=== PATIENT | male | born 1955 | race Caucasian/White ===

== ENCOUNTER 2017-04-21 22:01 | Observation (INO) | payer OTHER ==
[2017-04-21] MEDS ORDERED: SODIUM CHLORIDE 0.9% 1,000 ML IV STA (22:08)
--- NOTE | 2017-04-21 22:15 | ED ---
Neuro HPI - General Stated Complaint: Numbness in left arm Time Seen by Provider: 04/21/17 22:01 Source: patient, EMS, RN notes reviewed Mode of arrival: EMS - History of Present Illness Is the patient presenting with stroke symptoms?: No Initial Comments: This is a 62-year-old male with a history of patent foramen ovale muscles a smoker and also admits to drinking 5 beers today who states he was walking in his home when he developed left-sided upper and lower extremity heaviness and numbness lasted about 5 minutes. He has any headache blurry vision nausea vomiting fevers chills sweats or other symptoms he's never had symptoms like this before. He does state that he had no further symptoms since resolution. No family history of strokes or he is aware of. - Related Data Home Medications: Home Medications Medication Instructions Recorded Confirmed Tamsulosin HCl [Flomax] 0.4 mg PO HS 04/21/17 04/21/17 Allergies/Adverse Reactions: Allergies Allergy/AdvReac Type Severity Reaction Status Date / Time No Known Allergies Allergy Verified 04/21/17 22:27 Review of Systems ROS Statement: Those systems with pertinent positive or pertinent negative responses have been documented in the HPI. ROS Other: All systems not noted in ROS Statement are negative. General Exam - General Exam Comments Initial Comments: This is a well-developed well-nourished awake alert oriented 3 male he does have the smell of alcohol conjoiners on his breath General appearance: alert, in no apparent distress Head exam: Present: atraumatic, normocephalic, normal inspection Eye exam: Present: normal appearance, PERRL, EOMI. Absent: scleral icterus, conjunctival injection, periorbital swelling ENT exam: Present: normal exam, mucous membranes moist Neck exam: Present: normal inspection. Absent: tenderness, meningismus, lymphadenopathy Respiratory exam: Present: normal lung sounds bilaterally. Absent: respiratory distress, wheezes, rales, rhonchi, stridor Cardiovascular Exam: Present: regular rate, normal rhythm, normal heart sounds. Absent: systolic murmur, diastolic murmur, rubs, gallop, clicks GI/Abdominal exam: Present: soft, normal bowel sounds. Absent: distended, tenderness, guarding, rebound, rigid Extremities exam: Present: normal inspection, full ROM, normal capillary refill. Absent: tenderness, pedal edema, joint swelling, calf tenderness Back exam: Present: normal inspection Neurological exam: Present: alert, oriented X3, CN II-XII intact Psychiatric exam: Present: normal affect, normal mood Skin exam: Present: warm, dry, intact, normal color. Absent: rash Stroke MDM - Lab Data Result diagrams: 04/21/17 22:15 04/21/17 22:15 Lab Results 04/21/17 04/21/17 04/21/17 Range/Units 22:15 22:15 22:15 WBC 8.7 (3.8-10.6) k/uL RBC 4.77 (4.30-5.90) m/uL Hgb 15.1 (13.0-17.5) gm/dL Hct 45.3 (39.0-53.0) % MCV 95.0 (80.0-100.0) fL MCH 31.7 (25.0-35.0) pg MCHC 33.3 (31.0-37.0) g/dL RDW 13.3 (11.5-15.5) % Plt Count 218 (150-450) k/uL Neutrophils % 61 % Lymphocytes % 24 % Monocytes % 7 % Eosinophils % 4 % Basophils % 1 % Neutrophils # 5.3 (1.3-7.7) k/uL Lymphocytes # 2.1 (1.0-4.8) k/uL Monocytes # 0.6 (0-1.0) k/uL Eosinophils # 0.4 (0-0.7) k/uL Basophils # 0.1 (0-0.2) k/uL PT (9.0-12.0) sec INR (<1.2) APTT (22.0-30.0) sec Sodium 135 L (137-145) mmol/L Potassium 4.1 (3.5-5.1) mmol/L Chloride 98 (98-107) mmol/L Carbon Dioxide 23 (22-30) mmol/L Anion Gap 14 mmol/L BUN 17 (9-20) mg/dL Creatinine 1.00 (0.66-1.25) mg/dL Est GFR (MDRD) Af Amer >60 (>60 ml/min/1.73 sqM) Est GFR (MDRD) Non-Af >60 (>60 ml/min/1.73 sqM) Glucose 97 (74-99) mg/dL POC Glucose (mg/dL) (75-99) mg/dL POC Glu Specialist Employee Labor Relations ID Calcium 9.0 (8.4-10.2) mg/dL Magnesium 1.8 (1.6-2.3) mg/dL Total Bilirubin 0.5 (0.2-1.3) mg/dL AST 24 (17-59) U/L ALT 32 (21-72) U/L Alkaline Phosphatase 73 (38-126) U/L Total Creatine Kinase 166 (55-170) U/L CK-MB (CK-2) 3.7 H* (0.0-2.4) ng/mL CK-MB (CK-2) Rel Index 2.2 Troponin I 0.033 (0.000-0.034) ng/mL Total Protein 7.6 (6.3-8.2) g/dL Albumin 4.4 (3.5-5.0) g/dL Serum Alcohol 65 mg/dL 04/21/17 04/21/17 Range/Units 22:15 22:23 WBC (3.8-10.6) k/uL RBC (4.30-5.90) m/uL Hgb (13.0-17.5) gm/dL Hct (39.0-53.0) % MCV (80.0-100.0) fL MCH (25.0-35.0) pg MCHC (31.0-37.0) g/dL RDW (11.5-15.5) % Plt Count (150-450) k/uL Neutrophils % % Lymphocytes % % Monocytes % % Eosinophils % % Basophils % % Neutrophils # (1.3-7.7) k/uL Lymphocytes # (1.0-4.8) k/uL Monocytes # (0-1.0) k/uL Eosinophils # (0-0.7) k/uL Basophils # (0-0.2) k/uL PT 11.6 (9.0-12.0) sec INR 1.2 H (<1.2) APTT 25.2 (22.0-30.0) sec Sodium (137-145) mmol/L Potassium (3.5-5.1) mmol/L Chloride (98-107) mmol/L Carbon Dioxide (22-30) mmol/L Anion Gap mmol/L BUN (9-20) mg/dL Creatinine (0.66-1.25) mg/dL Est GFR (MDRD) Af Amer (>60 ml/min/1.73 sqM) Est GFR (MDRD) Non-Af (>60 ml/min/1.73 sqM) Glucose (74-99) mg/dL POC Glucose (mg/dL) 102 H (75-99) mg/dL POC Glu Specialist Employee Labor Relations ID [place] Calcium (8.4-10.2) mg/dL Magnesium (1.6-2.3) mg/dL Total Bilirubin (0.2-1.3) mg/dL AST (17-59) U/L ALT (21-72) U/L Alkaline Phosphatase (38-126) U/L Total Creatine Kinase (55-170) U/L CK-MB (CK-2) (0.0-2.4) ng/mL CK-MB (CK-2) Rel Index Troponin I (0.000-0.034) ng/mL Total Protein (6.3-8.2) g/dL Albumin (3.5-5.0) g/dL Serum Alcohol mg/dL - NIH Stroke Scale 1a. Level of Consciousness: (0) alert 1b. LOC Questions: (0) answers correctly 1c. LOC Commands: (0) performs tasks correctly 2. Best Gaze: (0) normal 3. Visual: (0) no visual loss 4. Facial Palsy: (0) normal symmetrical movement 5a. Motor Arm Left: (0) no drift 5b. Motor Arm Right: (0) no drift 6a. Motor Leg Left: (0) no drift 6b. Motor Leg Right: (0) no drift 7. Limb Ataxia: (0) absent 8. Sensory: (0) normal 9. Best Language: (0) no aphasia 10. Dysarthria: (0) normal 11. Extinction/Inattention: (0) no abnormality - Thrombolytic Inclusion/Exclusion Thrombolytic Contraindications: Rapidly Improving s/s - Medical Decision Making I did discuss findings with patient family patient will be admitted for evaluation TIA he is currently asymptomatic. He does smoke 2 packs of cigarettes per day and does not want nicotine patch at this time. We did a long discussion lasted 3.1 minutes regarding smoking cessation and the risks and benefits thereof. - EKG Data -: EKG Interpreted by Me EKG shows normal: sinus rhythm (Sinus rhythm of 63. We'll 160 QRS 136 QT since QTC of 334/444 red bundle-branch block no acute ST-T wave changes.) Past Medical History Past Medical History: Chest Pain / Angina, COPD Additional Past Medical History / Comment(s): occasional chest discomfort History of Any Multi-Drug Resistant Organisms: None Reported Past Surgical History: Orthopedic Surgery Additional Past Surgical History / Comment(s): ORIF RT THUMB; PINS REMOVED. recent AMARIS Past Anesthesia/Blood Transfusion Reactions: No Reported Reaction Smoking Status: Heavy tobacco smoker Course Vital Signs 04/21/17 04/21/17 22:16 23:52 Temperature 97.6 F Pulse Rate 66 60 Respiratory 18 18 Rate Blood Pressure 170/85 148/70 O2 Sat by Pulse 95 95 Oximetry Disposition Clinical Impression: Transient cerebral ischemia Disposition: ADMITTED IP TO THIS HOSP Condition: Stable Referrals: Rhonda Chappell MD [Primary Care Provider] - 1-2 days Decision Time: 00:00
[2017-04-21 22:25] LABS: Glucose,Whole Blood 102 mg/dL (75-99)
[2017-04-21 22:31] LABS: Basophils # (A) 0.1 k/uL (0-0.2); Basophils % (A) 1 %; CH 32.5; CHCM 34.4; Eosinophils # (A) 0.4 k/uL (0-0.7); Eosinophils % (A) 4 %; HCT 45.3 % (39.0-53.0); HDW 2.21; HGB 15.1 gm/dL (13.0-17.5); Luc # (Auto) 0.28; Luc % (Auto) 3; Lymphocytes # (A) 2.1 k/uL (1.0-4.8); Lymphocytes % (A) 24 %; MCH 31.7 pg (25.0-35.0); MCHC 33.3 g/dL (31.0-37.0); Monocytes # (A) 0.6 k/uL (0-1.0); Monocytes % (A) 7 %; Neutrophils # (A) 5.3 k/uL (1.3-7.7); Neutrophils % (A) 61 %; RBC 4.77 m/uL (4.30-5.90); RDW 13.3 % (11.5-15.5); WBC 8.7 k/uL (3.8-10.6); WBC (Perox) 8.34
[2017-04-21 22:39] LABS: INR 1.2 (<1.2); Partial Thromboplastin Time 25.2 sec (22.0-30.0); Prothrombin Time 11.6 sec (9.0-12.0)
[2017-04-21 22:44] LABS: ALT 32 U/L (21-72); AST 24 U/L (17-59); Alcohol 65 mg/dL; Alkaline Phosphatase 73 U/L (38-126); Anion Gap 14 mmol/L; Blood Urea Nitrogen 17 mg/dL (9-20); Carbon Dioxide 23 mmol/L (22-30); Chloride 98 mmol/L (98-107); Glucose 97 mg/dL (74-99); Magnesium 1.8 mg/dL (1.6-2.3); Non-African American GFR(MDRD) >60 (>60 ml/min/1.73 sqM); Potassium 4.1 mmol/L (3.5-5.1); Sodium 135 mmol/L (137-145); Total Bilirubin 0.5 mg/dL (0.2-1.3); Total Protein 7.6 g/dL (6.3-8.2)
[2017-04-21 23:11] LABS: Troponin I 0.033 ng/mL (0.000-0.034)
[2017-04-21 23:21] LABS: Creatine Kinase MB 3.7 ng/mL (0.0-2.4)
--- NOTE | 2017-04-21 23:54 | CT ---
EXAM: CT Head Without Intravenous Contrast CLINICAL HISTORY: Reason: Neuro Deficits pt. c/o of left sided weakness/ TECHNIQUE: Axial computed tomography images of the head/brain without intravenous contrast. CTDI is 57.40 mGy and DLP is 926.50 mGy-cm. This CT exam was performed using one or more of the following dose reduction techniques: automated exposure control, adjustment of the mA and/or kV according to patient size, and/or use of iterative reconstruction technique. COMPARISON: No relevant prior studies available. FINDINGS: Brain: Mild low density in the subcortical and periventricular white matter. No hemorrhage. No edema. No midline shift or mass effect Ventricles: Unremarkable. No ventriculomegaly. Bones/joints: Unremarkable. No acute fracture. Soft tissues: Unremarkable. Sinuses: Minimal paranasal sinus mucosal thickening. Mastoid air cells: Unremarkable as visualized. No mastoid effusion. IMPRESSION: 1. No evidence of acute intracranial abnormality. 2. Low density in the subcortical periventricular white matter likely reflects chronic small vessel disease.
--- NOTE | 2017-04-21 23:55 | XR ---
EXAM: XR Chest, 2 Views CLINICAL HISTORY: Reason: altered mental status TECHNIQUE: Frontal and lateral views of the chest. Pt. c/o left sided weakness COMPARISON: No relevant prior studies available. FINDINGS: Lungs: Unremarkable. No consolidation. Pleural space: Unremarkable. No pneumothorax. Heart: Unremarkable. No cardiomegaly. Mediastinum: Unremarkable. Bones/joints: Unremarkable. IMPRESSION: No evidence of acute cardiopulmonary disease.
[2017-04-22] MEDS ORDERED: SODIUM CHLORIDE 0.9% 1,000 ML IV SCH (01:00)
[2017-04-22] MEDS ORDERED: ASPIRIN 325 MG TAB PO STA (01:42)
[2017-04-22 03:34] VITALS: TEMP 97.2
[2017-04-22 08:45] VITALS: RESP 17
--- NOTE | 2017-04-22 09:30 | US ---
EXAMINATION TYPE: US carotid duplex BILAT DATE OF EXAM: 04/22/2017 COMPARISON: NONE CLINICAL HISTORY: Stenosis. Left arm and leg numbness last night, none today, no h/o stroke EXAM MEASUREMENTS: RIGHT: Peak Systolic Velocity (PSV) cm/sec ----- Right CCA: 85.0 ----- Right ICA: 86.1 ----- Right ECA: 178.7 ICA/CCA ratio: 1.0 RIGHT: End Diastole cm/sec ----- Right CCA: 9.1 ----- Right ICA: 17.1 ----- Right ECA: 0.0 LEFT: Peak Systolic Velocity (PSV) cm/sec ----- Left CCA: 67.4 ----- Left ICA: 106.9 ----- Left ECA: 134.5 ICA/CCA ratio: 1.6 LEFT: End Diastole cm/sec ----- Left CCA: 9.0 ----- Left ICA: 21.2 ----- Left ECA: 5.3 VERTEBRALS (direction of flow): Right Vertebral: Antegrade Left Vertebral: Antegrade Mild heterogeneous plaque at the left bulb with no significant stenosis seen Grayscale, color and spectral Doppler imaging of the carotid arteries. IMPRESSION: No hemodynamic significant stenosis of the proximal internal carotid arteries bilaterall y by Doppler criteria, an indirect measurement of carotid stenosis
[2017-04-22 13:37] VITALS: BP 181/83; PULSE 56
--- NOTE | 2017-04-22 14:24 | P.HPIM ---
History of Present Illness This is a 62-year-old male with a history of patent foramen ovale and smoker and does drink alcohol on regular basis but never had withdrawls came in with left-sided upper and lower extremity heaviness and numbness lasted about 5 minutes. He denied headache blurry vision nausea vomiting fevers chills sweats or other symptoms he's never had symptoms like this before. He does state that he had no further symptoms since resolution. No family history of strokes or he is aware of. Patient underwent carotid Doppler which did not show any hemodynamically significant atherosclerotic vascular disease and bilateral cavitates. Patient underwent echocardiogram pulmonary report is no patent foraminal ovale. Patient underwent surgical correction in the past for PFO. Patient underwent bubble study. Extensive counseling regarding nicotine abuse was provided and patient will be started on aspirin and simvastatin and will be discharged. Patient has minimal expiratory wheezing probably undiagnosed COPD for which patient was started on albuterol and inhalational steroids as well. Patient will need outpatient pulmonary function testing. Counseling regarding alcohol abuse was provided and I do not believe patient will have significant withdrawals withdrawals warranting his continued hospitalization. Review of Systems REVIEW OF SYSTEMS: CONSTITUTIONAL: No fever, no malaise, no fatigue. HEENT: No recent visual problems or hearing problems. Denied any sore throat. CARDIOVASCULAR: No chest pain, orthopnea, PND, no palpitations, no syncope. PULMONARY: No shortness of breath, no cough, no hemoptysis. GASTROINTESTINAL: No diarrhea, no nausea, no vomiting, no abdominal pain. Normoactive bowel sounds. NEUROLOGICAL: No headaches. HEMATOLOGICAL: Denies any bleeding or petechiae. GENITOURINARY: Denies any burning micturition, frequency, or urgency. MUSCULOSKELETAL/RHEUMATOLOGICAL: Denies any joint pain, swelling, or any muscle pain. ENDOCRINE: Denies any polyuria or polydipsia. The rest of the 14-point review of systems is negative. Past Medical History Past Medical History: Chest Pain / Angina, COPD Additional Past Medical History / Comment(s): occasional chest discomfort, PFO History of Any Multi-Drug Resistant Organisms: None Reported Past Surgical History: Orthopedic Surgery Additional Past Surgical History / Comment(s): ORIF RT THUMB; PINS REMOVED. recent AMARIS Past Anesthesia/Blood Transfusion Reactions: No Reported Reaction Past Psychological History: No Psychological Hx Reported Smoking Status: Heavy tobacco smoker Past Alcohol Use History: Occasional Additional Past Alcohol Use History / Comment(s): SMOKES 2 PPD FOR 40 PLUS YRS; DRINKS 2-3X PER WK, OR EST 8-10 BEERS PER WEEK Past Drug Use History: Marijuana Additional Drug Use History / Comment(s): SMOKES MARIJUANA DAILY - Past Family History Father Family Medical History: No Reported History Medications and Allergies Home Medications Medication Instructions Recorded Confirmed Type Tamsulosin HCl [Flomax] 0.4 mg PO HS 04/21/17 04/21/17 History Allergies Allergy/AdvReac Type Severity Reaction Status Date / Time No Known Allergies Allergy Verified 04/21/17 22:27 Physical Exam Vitals: Vital Signs Temp Pulse Pulse Resp BP BP Pulse Ox 04/22/17 12:00 56 L 17 181/83 92 L 04/22/17 08:00 63 17 156/81 94 L 04/22/17 05:28 49 L 125/61 04/22/17 03:30 97.2 F L 55 L 16 197/81 95 04/22/17 01:55 97.3 F L 59 L 18 155/71 95 04/22/17 00:14 57 L 18 143/69 96 04/21/17 23:52 60 18 148/70 95 04/21/17 22:16 97.6 F 66 18 170/85 95 Intake and Output 04/21/17 04/22/17 04/22/17 22:59 06:59 14:59 Intake Total 400 200 Balance 400 200 Intake: IV 400 Sodium Chloride 0.9% 1, 400 000 ml @ 100 mls/hr IV . Q10H [facility] Rx#:[id number] Oral 200 Other: # Voids 1 0 Weight 77.111 kg 77.6 kg PHYSICAL EXAMINATION: GENERAL: The patient is alert and oriented x3, not in any acute distress. Well developed, well nourished. HEENT: Pupils are round and equally reacting to light. EOMI. No scleral icterus. No conjunctival pallor. Normocephalic, atraumatic. No pharyngeal erythema. No thyromegaly. CARDIOVASCULAR: S1 and S2 present. No murmurs, rubs, or gallops. PULMONARY: Chest is clear to auscultation, no wheezing or crackles. ABDOMEN: Soft, nontender, nondistended, normoactive bowel sounds. No palpable organomegaly. MUSCULOSKELETAL: No joint swelling or deformity. EXTREMITIES: No cyanosis, clubbing, or pedal edema. NEUROLOGICAL: Gross neurological examination did not reveal any focal deficits. SKIN: No rashes. Results CBC & Chem 7: 04/21/17 22:15 04/21/17 22:15 Labs: Abnormal Lab Results - Last 24 Hours (Table) 04/21/17 04/21/17 04/21/17 Range/Units 22:15 22:15 22:15 INR 1.2 H (<1.2) Sodium 135 L (137-145) mmol/L POC Glucose (mg/dL) (75-99) mg/dL CK-MB (CK-2) 3.7 H* (0.0-2.4) ng/mL 04/21/17 Range/Units 22:23 INR (<1.2) Sodium (137-145) mmol/L POC Glucose (mg/dL) 102 H (75-99) mg/dL CK-MB (CK-2) (0.0-2.4) ng/mL Thrombosis Risk Factor Assmnt - Choose All That Apply Any of the Below Risk Factors Present?: Yes Each Factor Represents 1 point: Abnormal pulmonary function (COPD) Each Risk Factor Represents 2 Points: Age 61-74 years Thrombosis Risk Factor Assessment Total Risk Factor Score: 3 Thrombosis Risk Factor Assessment Level: Moderate Risk Assessment and Plan Plan: 1 possible transient ischemic attack: Completely resolved symptoms patient underwent workup for TIA patient will need to be in a statin, patient will need outpatient lipase panel. Patient was started on baby aspirin. And patient will be discharged today. Patient will follow-up with neurology as an outpatient. #2 possible COPD with minimal exacerbation patient was never diagnosed with COPD in the past patient will need outpatient pulmonary function testing. #3 nicotine abuse and alcohol abuse: Counseling was provided. #4 history of patent foraminal ovale: Status post surgical correction. #5 benign prostatic hypertrophy: For which patient will need to continue tamsulosin.
--- NOTE | 2017-04-22 14:24 | P.DS ---
Providers Date of admission: 04/22/17 00:50 Attending physician: Nicky Olivia Consults: 04/22/17 00:51 Consult Physician Routine Consulting Provider: Loretta Draper Consult Reason/Comments: TIA Do you want consulting provider notified?: Yes Primary care physician: Rhonda Chappell Hospital Course: Please refer to HPI Patient Condition at Discharge: Stable Plan - Discharge Summary New Discharge Prescriptions: New Albuterol Inhaler [Ventolin Hfa Inhaler] 1 - 2 puff INHALATION Q6HR PRN #1 inhaler PRN Reason: Shortness Of Breath Or Wheezing Aspirin 81 mg PO DAILY #30 chewable Atorvastatin [Lipitor] 40 mg PO HS #30 tablet Budesonide-Formot 160-4.5 Mcg [Symbicort 160-4.5 Mcg Inhaler] 2 puff INHALATION BID #1 inhaler No Action Tamsulosin HCl [Flomax] 0.4 mg PO HS Discharge Medication List Tamsulosin HCl [Flomax] 0.4 mg PO HS 04/21/17 [History] Albuterol Inhaler [Ventolin Hfa Inhaler] 1 - 2 puff INHALATION Q6HR PRN #1 inhaler 04/22/17 [Rx] Aspirin 81 mg PO DAILY #30 chewable 04/22/17 [Rx] Atorvastatin [Lipitor] 40 mg PO HS #30 tablet 04/22/17 [Rx] Budesonide-Formot 160-4.5 Mcg [Symbicort 160-4.5 Mcg Inhaler] 2 puff INHALATION BID #1 inhaler 04/22/17 [Rx] Follow up Appointment(s)/Referral(s): Loretta Draper MD [STAFF PHYSICIAN] - 1 Week Rhonda Chappell MD [Primary Care Provider] - 3 Days Discharge Disposition: HOME SELF-CARE
--- NOTE | 2017-04-22 17:01 | ECHOF ---
Referral Reason:TIA MEASUREMENTS -------- HEIGHT: 172.7 cm WEIGHT: 77.6 kg BP: 156/81 RVIDd: 3.4 cm (< 3.3) IVSd: 1.3 cm (0.6 - 1.1) LVIDd: 4.0 cm (3.9 - 5.3) LVPWd: 1.3 cm (0.6 - 1.1) IVSs: 1.7 cm LVIDs: 2.8 cm LVPWs: 2.0 cm LA Diam: 3.7 cm (2.7 - 3.8) LAESV Index (A-L): 40.68 ml/m Ao Diam: 3.2 cm (2.0 - 3.7) AV Cusp: 2.5 cm (1.5 - 2.6) MV EXCURSION: 13.341 mm (> 18.000) MV EF SLOPE: 110 mm/s (70 - 150) EPSS: 0.2 cm MV E David: 0.58 m/s MV DecT: 282 ms MV A David: 0.57 m/s MV E/A Ratio: 1.02 RAP: 5.00 mmHg RVSP: 22.55 mmHg FINDINGS -------- Resting bradycardia (HR<60bpm). This was a technically good study. The left ventricular size is normal. There is mild concentric left ventricular hypertrophy. Overall left ventricular systolic function is normal with, an EF between 60 - 65 %. The right ventricle is mildly enlarged. LA is severely dilated >40 ml/m2 The right atrium is normal in size. Contrast study was performed with 1 iv injection of 8 ccs of agitated normal saline at rest. There is an interatrial closure device in place without evidence of shunt. The aortic valve is trileaflet and appears structurally normal. The mitral valve is normal. Mild tricuspid regurgitation present. Right ventricular systolic pressure is normal at < 35 mmHg. Trace/mild (physiologic) pulmonic regurgitation. The aortic root size is normal. Normal inferior vena cava with normal inspiratory collapse consistent with estimated right atrial pressure of 5 mmHg. There is no pericardial effusion. CONCLUSIONS -------- 1. Resting bradycardia (HR<60bpm). 2. There is an interatrial closure device in place without evidence of shunt. 3. The aortic valve is trileaflet and appears structurally normal. 4. The mitral valve is normal. 5. Mild tricuspid regurgitation present. 6. Right ventricular systolic pressure is normal at < 35 mmHg. 7. Trace/mild (physiologic) pulmonic regurgitation. 8. The aortic root size is normal. 9. Normal inferior vena cava with normal inspiratory collapse consistent with estimated right atrial pressure of 5 mmHg. 10. There is no pericardial effusion. 11. This was a technically good study. 12. The left ventricular size is normal. 13. There is mild concentric left ventricular hypertrophy. 14. Overall left ventricular systolic function is normal with, an EF between 60 - 65 %. 15. The right ventricle is mildly enlarged. 16. LA is severely dilated >40 ml/m2 17. The right atrium is normal in size. 18. Contrast study was performed with 1 iv injection of 8 ccs of agitated normal saline at rest. PHOTOLETTERING MACHINE OPERATOR: Chely Virk RDCS
[2017-04-22] MEDS ORDERED: TAMSULOSIN 0.4 MG CAP.ER.24H PO SCH (21:00)
[2017-04-23] MEDS ORDERED: ASPIRIN 325 MG TAB PO SCH (00:52)
== END 2017-04-22 16:40 | disposition home or self-care (01) ==
LOC: EC 22:01 → 6SEL 04-22 00:50
PROVIDERS: ADMIT Internal Medicine; ATTEND Internal Medicine
DX: R20.0 Anesthesia of skin (principal); F17.210 Nicotine dependence, cigarettes, uncomplicated; F10.10 Alcohol abuse, uncomplicated; N40.0 Benign prostatic hyperplasia without lower urinary tract symptoms; Z79.899 Other long term (current) drug therapy
CPT/HCPCS: 99285; 36415; 93306; 97161; 92523; 80053; 82550; 82553; 83735; 84484; 85025; 85610; 85730; 80320; 71020; 93880; 70450; G0378

== ENCOUNTER → 2018-04-29 | Outpatient (CLI) | payer OTHER ==
--- NOTE | 2018-04-29 13:16 | XR ---
EXAM TYPE: LUMBAR SPINE X RAY SERIES COMPARISON: NONE HISTORY: Pain TECHNIQUE: 4 views are submitted. FINDINGS: Alignment is anatomic. The pedicles are intact. The transverse processes are intact. There is grad e 1 spondylolisthesis L4 on L5. Diffuse osteopenia with hypertrophic and degenerative changes at all levels. Multilevel facet arthropathy and moderate to severe degenerative disc disease at all levels with most marked findings at levels L4-5 and L5-S1. IMPRESSION: 1. Multilevel moderate to severe degenerative disc disease with facet arthropathy and grade 1 anterol isthesis L4 on L5.
== END | disposition home or self-care (01) ==
LOC: RADXRYALE 12:57
PROVIDERS: ATTEND Internal Medicine
DX: M43.16 Spondylolisthesis, lumbar region (principal); M51.36 Other intervertebral disc degeneration, lumbar region; M47.816 Spondylosis without myelopathy or radiculopathy, lumbar region; M46.96 Unspecified inflammatory spondylopathy, lumbar region
CPT/HCPCS: 72110

== ENCOUNTER → 2018-12-10 | Outpatient (CLI) | payer OTHER ==
[2018-12-10 17:30] LABS: LDL Cholesterol,Calculated 52.4 mg/dL (0.0-131.0); VLDL Calculation 18.6 mg/dL (5.00-40.00)
== END | disposition home or self-care (01) ==
LOC: LABWHC1 09:07
PROVIDERS: ATTEND Nurse Practitioner Adult Health
DX: E78.5 Hyperlipidemia, unspecified (principal)
CPT/HCPCS: 36415; 80061

== ENCOUNTER 2019-09-21 08:42 | Emergency (ER) | payer OTHER ==
[2019-09-21 08:47] VITALS: BP 180/90; PULSE 78; RESP 18; TEMP 97.6
--- NOTE | 2019-09-21 09:17 | ED ---
Eye Problem HPI - General Chief complaint: Eye Problems Stated complaint: eye swelling Time Seen by Provider: 09/21/19 08:59 Source: patient, old records reviewed Mode of arrival: ambulatory Limitations: no limitations - History of Present Illness Initial comments: 64-year-old male presents emergency Department chief complaint right eye swelling. Patient states he had some swelling yesterday went down after some Benadryl and cool compress. Patient states no sore.eyes eyelid. Patient woke up with increasing swelling, redness. Denies any vision changes, no pain with ocular movements no ocular pain itself states it's in the eyelid. Patient denies any current drainage. Patient had prior cataract surgery by for heme - Related Data Home Medications Medication Instructions Recorded Confirmed Tamsulosin HCl [Flomax] 0.4 mg PO HS 04/21/17 04/21/17 Previous Rx's Medication Instructions Recorded Albuterol Inhaler [Ventolin Hfa 1 - 2 puff INHALATION Q6HR PRN #1 04/22/17 Inhaler] inhaler Aspirin 81 mg PO DAILY #30 chewable 04/22/17 Atorvastatin [Lipitor] 40 mg PO HS #30 tablet 04/22/17 Budesonide-Formot 160-4.5 Mcg 2 puff INHALATION BID #1 inhaler 04/22/17 [Symbicort 160-4.5 Mcg Inhaler] Amoxicillin/Potassium Clav 1 tab PO Q12HR #20 tab 09/21/19 [Augmentin 875-125 Tablet] Tobramycin [Tobrex 0.3% Ophth Soln] 1 drop RIGHT EYE Q4HR #5 ml 09/21/19 Allergies Allergy/AdvReac Type Severity Reaction Status Date / Time No Known Allergies Allergy Verified 09/21/19 08:47 Review of Systems ROS Statement: Those systems with pertinent positive or pertinent negative responses have been documented in the HPI. ROS Other: All systems not noted in ROS Statement are negative. Past Medical History Past Medical History: Chest Pain / Angina, COPD Additional Past Medical History / Comment(s): occasional chest discomfort, PFO History of Any Multi-Drug Resistant Organisms: None Reported Past Surgical History: Orthopedic Surgery Additional Past Surgical History / Comment(s): ORIF RT THUMB; PINS REMOVED. recent AMARIS Past Anesthesia/Blood Transfusion Reactions: No Reported Reaction Past Psychological History: No Psychological Hx Reported Smoking Status: Heavy tobacco smoker Past Alcohol Use History: Occasional Past Drug Use History: Marijuana - Past Family History Father Family Medical History: No Reported History General Exam Limitations: no limitations General appearance: alert, in no apparent distress Head exam: Present: atraumatic, normocephalic, normal inspection Eye exam: Present: PERRL, EOMI, periorbital swelling (Mild right with erythema), periorbital tenderness (Mild right upper eyelid), other (Internal and external sign noted on the right). Absent: normal appearance, scleral icterus, conjunctival injection ENT exam: Present: normal exam, normal oropharynx, mucous membranes moist Neck exam: Present: normal inspection, full ROM. Absent: tenderness, meningismus, lymphadenopathy Respiratory exam: Present: normal lung sounds bilaterally. Absent: respiratory distress, wheezes, rales, rhonchi, stridor Cardiovascular Exam: Present: regular rate, normal rhythm, normal heart sounds. Absent: systolic murmur, diastolic murmur, rubs, gallop, clicks Course Vital Signs 09/21/19 08:44 Temperature 97.6 F Pulse Rate 78 Respiratory 18 Rate Blood Pressure 180/90 O2 Sat by Pulse 97 Oximetry Medical Decision Making - Medical Decision Making Patient found to have a internal/external stye on the right eyelid, there is some surrounding erythema in possible very early cellulitis type changes. Patient lives in [place] by some eyedrops advised to follow-up with Dr. kenny thomas tomorrow return for any worsening symptoms. Disposition Clinical Impression: Hordeolum of right eye Disposition: HOME SELF-CARE Condition: Stable Instructions (If sedation given, give patient instructions): Matthew (ED) Additional Instructions: Please return to the Emergency Department if symptoms worsen or any other concerns. Prescriptions: Amoxicillin/Potassium Clav [Augmentin 875-125 Tablet] 1 tab PO Q12HR #20 tab Tobramycin [Tobrex 0.3% Ophth Soln] 1 drop RIGHT EYE Q4HR #5 ml Is patient prescribed a controlled substance at d/c from ED?: No Referrals: Rhonda Chappell MD [Primary Care Provider] - 1-2 days Deja Nicole MD [STAFF PHYSICIAN] - 1-2 days Time of Disposition: 09:18
== END 2019-09-21 09:50 | disposition home or self-care (01) ==
LOC: EC 08:42
DX: H00.021 Hordeolum internum right upper eyelid (principal); H00.011 Hordeolum externum right upper eyelid; Q21.1 Atrial septal defect; F17.200 Nicotine dependence, unspecified, uncomplicated; Z79.899 Other long term (current) drug therapy; Z98.890 Other specified postprocedural states
CPT/HCPCS: 99283

== ENCOUNTER → 2021-07-14 | Outpatient (CLI) | payer MEDICARE, OTHER ==
--- NOTE | 2021-07-14 11:38 | CTL ---
EXAMINATION TYPE: CT Low Dose Lung DATE OF EXAM ORDERED: 07/14/2021 HISTORY: 66-year-old male Lung cancer screening. F17.[address] DLP: 98.[address] CTDI: 2.90 mGy Automated exposure control for dose reduction was used. SCREENING VISIT: Baseline COMPARISON: Radiograph 04/21/2017 TECHNIQUE: Low dose computed tomography scan was performed through the chest with coronal and sagitta l reconstructions. CT DIAGNOSTIC QUALITY: Satisfactory FINDINGS: Heart normal size without pericardial effusion. PFO closure device is noted. Mild LAD and RCA coronar y calcifications are present. Minimal atherosclerotic arch calcifications. Conventional arch vessel branching anatomy. No thoracic lymphadenopathy by CT size criteria. Mild diffuse bronchial wall thickening. Minimal centrilobular emphysematous change. No consolidation or pleural effusion. 4 mm posterior right upper lobe pulmonary nodule, axial image 38. 5 mm peripheral right lower lobe pulmonary nodule, axial image 2:15. 4 mm left upper lobe pulmonary nodule, axial image 86. Visualized upper abdomen shows no gross abnormality. Bones: Moderate degenerative disc disease mid to lower thoracic spine with anterior endplate spondylo sis. IMPRESSION: 1. LungRADS 2, benign. A few 5 mm and smaller pulmonary nodules on baseline screening. 2. Recommend smoking cessation. There is COPD with very mild emphysema and either a prominent compone nt of chronic bronchitis versus superimposed acute bronchitis. Clinically correlate. CT LUNG RAD AND CT CHEST RECOMMENDATION: Lung-Rad 2 Benign Appearance or Behavior: Continue annual sc reening with LDCT in 12 months. S Modifier (other clinically significant findings): None
== END | disposition home or self-care (01) ==
LOC: RADCTMAIN 08:34
PROVIDERS: ATTEND Internal Medicine
DX: Z12.2 Encounter for screening for malignant neoplasm of respiratory organs (principal); F17.218 Nicotine dependence, cigarettes, with other nicotine-induced disorders; R91.8 Other nonspecific abnormal finding of lung field
CPT/HCPCS: 71271

== ENCOUNTER → 2022-08-02 | Outpatient (CLI) | payer MEDICARE, OTHER ==
[2022-08-02 18:12] LABS: HCT 43.2 % (39.6-50.0); HGB 14.1 g/dL (13.0-17.0); MCH 31.5 pg (27.0-32.0); MCHC 32.6 g/dL (32.0-37.0); MCV 96.4 fL (80.0-97.0); Mean Platelet Volume 10.9 fL (9.5-12.2); NRBC Per 100 WBC 0 /100 WBCS (0.0-0.0); Platelet Count 278 X 10*3/uL (140-440); RBC 4.48 X 10*6/uL (4.40-5.60); RDW 12.2 % (11.5-14.5); WBC 7.86 X 10*3/uL (4.50-10.00)
[2022-08-02 18:34] LABS: Anion Gap 11.3 mmol/L (10.00-18.00); Blood Urea Nitrogen 18.6 mg/dL (9.0-27.0); Carbon Dioxide 28.3 mmol/L (20.0-27.5); Non-African American GFR(CKD) 81.9 (60.0-200.0); Potassium 4.9 mmol/L (3.5-5.5)
== END | disposition home or self-care (01) ==
LOC: LABPAT 11:37
PROVIDERS: ATTEND Internal Medicine Interventional Cardiology
DX: Z01.812 Encounter for preprocedural laboratory examination (principal); R07.9 Chest pain, unspecified
CPT/HCPCS: 80051; 82565; 84520; 85027

== ENCOUNTER 2022-09-25 05:53 | Day surgery (SDC) | payer MEDICARE, OTHER ==
[2022-09-25] MEDS ORDERED: ASPIRIN 325 MG TAB PO STA (06:10)
[2022-09-25] MEDS ORDERED: ALPRAZolam 0.5 MG TAB PO PRN (06:10)
[2022-09-25] MEDS ORDERED: NITROGLYCERIN SL TABS 0.4 MG TAB SUBLINGUAL PRN ×2 (06:10→08:32)
[2022-09-25] MEDS: SODIUM CHLORIDE 0.9% 1,000 ML in EMPTY BAG 1 BAG IV SCH ×2 (06:10→19:41)
[2022-09-25] MEDS ORDERED: ALPRAZolam 0.25 MG TAB PO PRN (06:10)
[2022-09-25] MEDS ORDERED: ATORVASTATIN 80 MG TAB PO STA (06:10)
[2022-09-25 06:32] LABS: Basophils # (A) 0.1 k/uL (0-0.2); Basophils % (A) 1 %; Eosinophils # (A) 0.5 k/uL (0-0.7); Eosinophils % (A) 5 %; HCT 45.2 % (39.0-53.0); HGB 15.5 gm/dL (13.0-17.5); Lymphocytes # (A) 1.6 k/uL (1.0-4.8); Lymphocytes % (A) 18 %; MCH 32.1 pg (25.0-35.0); MCHC 34.4 g/dL (31.0-37.0); MCV 93.3 fL (80.0-100.0); Mean Platelet Volume 7.3; Monocytes # (A) 0.7 k/uL (0-1.0); Monocytes % (A) 8 %; Neutrophils # (A) 5.8 k/uL (1.3-7.7); Neutrophils % (A) 66 %; Platelet Count 290 k/uL (150-450); RBC 4.84 m/uL (4.30-5.90); RDW 11.9 % (11.5-15.5); WBC 8.8 k/uL (3.8-10.6)
[2022-09-25 06:44] LABS: African American GFR (CKD) >90 (>60 ml/min/1.73 sqM); Anion Gap 4 mmol/L; Blood Urea Nitrogen 21 mg/dL (9-20); Calcium 8.7 mg/dL (8.4-10.2); Carbon Dioxide 30 mmol/L (22-30); Chloride 104 mmol/L (98-107); Glucose 104 mg/dL (74-99); Non-African American GFR(CKD) 85 (>60 ml/min/1.73 sqM); Potassium 4.7 mmol/L (3.5-5.1); Sodium 138 mmol/L (137-145)
[2022-09-25] MEDS ORDERED: HEPARIN SODIUM,PORCINE 10,000 UNIT in SODIUM CHLORIDE 0.9% 1,000 ML IRRIGATION PRN (07:00)
[2022-09-25] MEDS ORDERED: HEPARIN SODIUM,PORCINE 2,500 UNIT in SODIUM CHLORIDE 0.9% 250 ML IRRIGATION PRN (07:00)
[2022-09-25] MEDS ORDERED: VERAPAMIL 2.5 MG/ML 2 ML AMP ONE (07:11)
[2022-09-25] MEDS ORDERED: HEPARIN SODIUM 1,000 UN/ML (10ML VL) ONE (07:34)
[2022-09-25] MEDS ORDERED: MIDAZOLAM 2 MG/2 ML VIAL IV ONE (07:44)
[2022-09-25] MEDS ORDERED: LIDOCAINE 1% INJ 10MG/ML (5 ML VIAL-PF) SQ ONE (07:46)
[2022-09-25] MEDS ORDERED: VERAPAMIL SYRINGE (5 MG/10 ML) INTRAARTER ONE (07:48)
[2022-09-25] MEDS ORDERED: CLOPIDOGREL 75 MG TAB ONE (08:03)
[2022-09-25] MEDS ORDERED: CLOPIDOGREL 75 MG TAB PO ONE (08:08)
[2022-09-25] MEDS ORDERED: fentaNYL (PF) 50 MCG/ML 2 ML AMP ONE (08:10)
[2022-09-25] MEDS ORDERED: NITROGLYCERIN 1000MCG/10ML SYRINGE INTRACORON ONE (08:11)
[2022-09-25] MEDS ORDERED: fentaNYL (PF) 50 MCG/1 ML VIAL IVP ONE (08:11)
[2022-09-25] MEDS ORDERED: IOPAMIDOL-370 125ML BTL INJ ONE (08:27)
[2022-09-25] MEDS ORDERED: ZOLPIDEM 5 MG TAB PO PRN (08:32)
[2022-09-25] MEDS ORDERED: ATROPINE SULFATE 0.1 MG/ML 10ML SYRINGE IV PRN (08:32)
[2022-09-25] MEDS ORDERED: MAG HYDROX/AL HYDROX/SIMETH 30 ML CUP PO PRN (08:32)
[2022-09-25] MEDS ORDERED: RX INFO: IV CONTRAST WAS GIVEN 1 EACH MISC MISCELLANE PRN (08:32)
--- NOTE | 2022-09-25 08:39 | P.PCN ---
Date of Procedure: 09/25/22 Operative Findings: CARDIAC CATHETERIZATION AND PERCUTANEOUS CORONARY INTERVENTION PERFORMING PHYSICIAN: Sandip Brower MD, [facility] PROCEDURE PERFORMED: 1. Selective right and left coronary angiogram 2. Left heart catheterization 3. Successful stenting of distal RCA using 4.0 x 18 mm Xience ENRIQUETA which with an excellent angiographic results 4. Successful stenting of the proximal RCA using 4.5 x 18 mm Xience ENRIQUETA with an excellent angiographic results 5. Intravascular ultrasound of the RCA. INDICATION: Chest discomfort concerning for angina in this 67-year-old gentleman with hypertension and dyslipidemia COMPLICATION: None APPROACH: Right radial artery LEVEL OF SEDATION: Moderate with the sedation time off 41 minutes PROCEDURE DESCRIPTION: After obtaining an informed consent the patient was brought to the cardiac laboratory cureman. The right radial artery was cannulated using Alvarado puncture technique, the micropuncture wire passed easily and I placed 6-[place] sheath in the right radial artery. I did after that give the patient 2 mg of verapamil intra- arterial and 5000 use of heparin intravenous. Selective right and left coronary angiogram performed using JR4 and JL 3.5 catheters. Left heart catheterization was performed using the JR4 catheter which cross the aortic valve. After that I did intervene on the right coronary artery. SELECTIVE CORONARY ANGIOGRAM: The right coronary artery: Large caliber vessel and a dominant vessel. The RCA has 2 type lesions proximally and distally both appeared to be in the range of 70-80%. Left main: Is angiographically normal. Bifurcates into an LCx and LAD The left circumflex: Large caliber vessel nondominant vessel. The LCx appeared to be angiographically normal. Gives rises into an OM1 which worked as a ramus intermedius and OM 2 and both appeared to be angiographically normal The left anterior descending artery: Large caliber vessel. The LAD appeared to have mild disease only. Gives rises into a large diagonal branch which seems to be dual LAD system. The LAD has no occlusive disease HEMODYNAMICS: The LVEDP was 14 mmHg was no significant gradient across aortic valve PCI OF THE RCA: Anticoagulation was initiated using heparin with continuous ACT monitoring. Subsequently I did engage the RCA using an a.l. 0.75 guiding catheter. I did wired using a run-through wire. After that I did intravascular ultrasound which showed a diameter of the RCA distally 4 mm and proximally 5 mm. After that I did balloon angioplasty using 3.5 mm balloon. Then I did deploy distally 4.0 x 18 mm and proximally 4.5 x 18 mm stents. Postdilatation was performed using 5 mm stents for both. The final angiogram showed excellent angiographic results and the procedure was completed with no complication CONCLUSION: Severe disease involving the distal and proximal RCA. I did perform successful angioplasty of both Mild disease involving the left coronary system Normal left sided filling pressure POSTPROCEDURE MANAGEMENT: #1 dual antiplatelet therapy using aspirin and Plavix for at least 6 months #2 aggressive cholesterol control #3 follow-up with the patient
[2022-09-25] MEDS ORDERED: SODIUM CHLORIDE 0.9% 1,000 ML in EMPTY BAG 1 BAG IV SCH (08:45)
[2022-09-25 14:00] VITALS: BMI 24.5
[2022-09-25] MEDS ORDERED: ATORVASTATIN 80 MG TAB PO SCH (21:00)
[2022-09-25] MEDS ORDERED: EZETIMIBE 10 MG TAB PO SCH (21:00)
[2022-09-26 06:54] LABS: African American GFR (CKD) >90 (>60 ml/min/1.73 sqM); Non-African American GFR(CKD) 78 (>60 ml/min/1.73 sqM)
[2022-09-26 07:17] VITALS: BP 131/75; PULSE 73; RESP 18; TEMP 98.2
[2022-09-26] MEDS ORDERED: lisinopriL 20 MG TAB PO SCH (09:00)
[2022-09-26] MEDS ORDERED: TAMSULOSIN 0.4 MG CAP.ER.24H PO SCH (09:00)
[2022-09-26] MEDS ORDERED: CLOPIDOGREL 75 MG TAB PO SCH (09:00)
[2022-09-26] MEDS ORDERED: ASPIRIN 81 MG PO SCH (09:00)
--- NOTE | 2022-09-26 09:34 | P.DS ---
Providers Attending physician: Sandip Brower Consults: 09/25/22 08:32 Consult Physician Routine Consulting Provider: [facility] Consult Reason/Comments: Post Interventional Patient Do you want consulting provider notified?: Already Contacted Primary care physician: Rhonda Chappell [facility] Course: The patient is a pleasant 67-year-old patient who was seen in the office recently for chest discomfort concerning for angina. He underwent a heart catheterization and was found to have severe disease involving the right coronary artery disease and underwent successful stenting of the RCA. He was seen this morning. He is asymptomatic. His hemodynamic stable. He is going to discharge home on dual antiplatelet therapy and high intensity statin and I'll follow-up with the patient next week in the office Plan - Discharge Summary Discharge Rx Participant: No New Discharge Prescriptions: New Atorvastatin [Lipitor] 80 mg PO HS #90 tab Clopidogrel [Plavix] 75 mg PO DAILY #90 tab Continue Tamsulosin HCl [Flomax] 0.4 mg PO DAILY Aspirin 81 mg PO DAILY #30 chewable lisinopriL 20 mg PO DAILY Ezetimibe [Zetia] 10 mg PO HS Discharge Medication List Tamsulosin HCl [Flomax] 0.4 mg PO DAILY 04/21/17 [History] Aspirin 81 mg PO DAILY #30 chewable 04/22/17 [Rx] lisinopriL 20 mg PO DAILY 08/07/22 [History] Ezetimibe [Zetia] 10 mg PO HS 09/20/22 [History] Atorvastatin [Lipitor] 80 mg PO HS #90 tab 09/26/22 [Rx] Clopidogrel [Plavix] 75 mg PO DAILY #90 tab 09/26/22 [Rx] Follow up Appointment(s)/Referral(s): Sandip Brower MD [STAFF PHYSICIAN] - 1 Week (APPOINTMENT MADE ON September @ 3:30PM )
== END 2022-09-26 11:20 | disposition home or self-care (01) ==
LOC: CATHCVL 05:53 → 6NMEDSUR 08:26 → CATHCVL 09-26 11:20
PROVIDERS: ATTEND Internal Medicine Interventional Cardiology
DX: R07.89 Other chest pain (principal); I10 Essential (primary) hypertension; E78.5 Hyperlipidemia, unspecified; Q21.10 Atrial septal defect, unspecified; F17.210 Nicotine dependence, cigarettes, uncomplicated; Z79.82 Long term (current) use of aspirin; Z79.899 Other long term (current) drug therapy
CPT/HCPCS: 94760; 92978; 93458; 80048; 82565; 85025; C9600; C1887; C1769 ×3; C1894; C1725 ×3; C1753; C1874 ×2; J2250; J2001; J1644 ×2; Q9967; J3010

== ENCOUNTER → 2022-11-01 | Outpatient (CLI) | payer MEDICARE, OTHER | END | disposition home or self-care (01) | LOC: LABWHC1 09:35 | PROVIDERS: ATTEND Internal Medicine Interventional Cardiology | DX: Z53.9 Procedure and treatment not carried out, unspecified reason (principal) ==

== ENCOUNTER → 2023-08-30 | Outpatient (CLI) | payer MEDICARE, OTHER ==
--- NOTE | 2023-08-30 16:18 | CTL ---
EXAMINATION TYPE: CT Low Dose Lung DATE OF EXAM ORDERED: 08/30/2023 HISTORY: 68-year-old male Z87.891 PERSONAL HISTORY OF NICOTINE DEPENDENCE. Former smoker with 45 pack -year history. Lung cancer screening CT DLP: [address] CTDI: 3.1 mGy Automated exposure control for dose reduction was used. SCREENING VISIT: Follow-up after last exam 2 years ago. COMPARISON: 07/14/2021 TECHNIQUE: Low dose computed tomography scan was performed through the chest with coronal and sagitta l reconstructions. CT DIAGNOSTIC QUALITY: Satisfactory FINDINGS: Heart normal size without pericardial effusion. Right atrial and right ventricular pacer leads. PFO c losure device. Left anterior chest wall generator device. Aorta normal caliber with conventional arch vessel branching anatomy. No thoracic lymph adenopathy by CT size criteria. Mild to moderate diffuse bronchial wall thickening. Mild interstitial prominence of the chronic appea odin. No consolidation or pleural effusion. Stable 3 mm anterior right basilar pulmonary nodule, axial image 192. 3 mm anterior right midlung pulmonary nodule, axial image 125. There may be a tiny hiatal hernia. Otherwise, visualized upper abdomen shows no gross abnormality. Bones: Mild to moderate degenerative disc disease mid to lower thoracic spine. IMPRESSION: 1. LungRADS 2, benign. A couple 3 mm pulmonary nodules remain unchanged. 2. Bronchial wall thickening suggests bronchitis or chronic asthma. CT LUNG RAD AND CT CHEST RECOMMENDATION: Lung-Rad 2 Benign Appearance or Behavior: Continue annual sc reening with LDCT in 12 months. S Modifier (other clinically significant findings): None
== END | disposition home or self-care (01) ==
LOC: RADCTMAIN 08:59
PROVIDERS: ATTEND Internal Medicine
DX: Z12.2 Encounter for screening for malignant neoplasm of respiratory organs (principal); R91.8 Other nonspecific abnormal finding of lung field; J98.09 Other diseases of bronchus, not elsewhere classified; Z87.891 Personal history of nicotine dependence
CPT/HCPCS: 71271

== ENCOUNTER → 2024-06-03 | Outpatient (CLI) | payer MEDICARE, OTHER ==
--- NOTE | 2024-06-03 10:06 | US ---
EXAMINATION TYPE: US Aorta Screening DATE OF EXAM: 06/03/2024 COMPARISON: NONE CLINICAL INDICATION: Male, 69 years old with history of Z13.6 Screening; former smoker, intermittent abdominal pain x 6 months TECHNIQUE: Multiple sonographic images of the abdominal aorta are obtained. FINDINGS: EXAM MEASUREMENTS: Abdominal Aorta: Proximal: 2.2 x 3.5 cm Mid: 1.8 x 1.8 cm Distal: 1.9 x 1.5 cm Bifurcation: Right Iliac: 1.2 x 1.3 cm Left Iliac: 0.9 x 0.9 cm CASE MAKING MACHINE OPERATOR NOTES: ? intimal thickening at proximal aorta vs soft plaque IMPRESSION: No evidence for aortic aneurysm. [facility] [place], , 06/03/2024 10:03 AM
== END | disposition home or self-care (01) ==
LOC: RADUSWWP 08:51
PROVIDERS: ATTEND Pediatrics
CPT/HCPCS: 76706